=== PATIENT | female | born 2000 | race Caucasian/White ===

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

== ENCOUNTER 2020-01-28 14:41 | Emergency (ER) | payer SELFPAY ==
--- NOTE | 2020-01-28 15:39 | ER Document Report ---
ED Medical Screen (RME) - General Chief Complaint: Vaginal Bleeding Stated Complaint: VAGINAL BLEEDING Time Seen by Provider: 01/28/20 15:36 Primary Care Provider: ISSA FRANCO MD [Primary Care Provider] - Follow up as needed Mode of Arrival: Ambulatory Information source: Patient Notes: 19-year-old female presented to ED for complaint of pelvic pain, back pain, va ginal bleeding. She is 19 weeks 5 days . She states she had similar incident in [place] about a month ago they did pelvic exam ultrasounds and told her that she had a subchorionic hematoma and the baby was okay at that time. She states she is very concerned because she is 3 para 1 with 1 miscarriage. She is a former smoker no alcohol no drugs. States she lives with her family. She has a history of cholecystectomy tonsils and adenoids removed and asthma. He is alert oriented respirations regular nonlabored speaking in full sentences. I have ordered a ultrasound immediately. She is on her way to ultrasound at this time and then will get her blood work and urine. I have greeted and performed a rapid initial assessment of this patient. A comprehensive ED assessment and evaluation of the patient, analysis of test results and completion of medical decision making process will be conducted by an additional ED providers. TRAVEL OUTSIDE OF THE [place] IN LAST 30 DAYS: No - Related Data Allergies/Adverse Reactions: No Known Allergies Allergy (Verified 01/24/19 15:06) Past Medical History - Social History Frequency of alcohol use: None Drug Abuse: None Pulmonary Medical History: Reports: Hx Asthma Renal/ Medical History: Denies: Hx Peritoneal Dialysis GI Medical History: Reports: Hx Gastroesophageal Reflux Disease Psychiatric Medical History: Reports: Hx Anxiety, Hx Depression Past Surgical History: Reports: Hx Adenoidectomy, Hx Cholecystectomy, Hx Tonsillectomy - Immunizations Immunizations up to date: Yes Hx Diphtheria, Pertussis, Tetanus Vaccination: Yes Physical Exam - Vital signs Vitals: Temp Pulse Resp BP Pulse Ox 99.0 F 87 20 112/81 100 01/28/20 14:49 01/28/20 14:49 01/28/20 14:49 01/28/20 14:49 01/28/20 14:49 Course - Vital Signs Vital signs: Temp Pulse Resp BP Pulse Ox 99.0 F 87 20 112/81 100 01/28/20 14:49 01/28/20 14:49 01/28/20 14:49 01/28/20 14:49 01/28/20 14:49 Doctor's Discharge - Discharge Referrals: ISSA FRANCO MD [Primary Care Provider] - Follow up as needed
[2020-01-28 16:17] LABS: ABSOLUTE EOSINOPHILS # (AUTO) 0.3 10^3/uL (0.0-0.6); ABSOLUTE LYMPHOCYTES (AUTO) 1.4 10^3/uL (0.5-4.7); ABSOLUTE MONOCYTES (AUTO) 0.6 10^3/uL (0.1-1.4); ABSOLUTE NEUT (AUTO) 7.4 10^3/uL (1.7-8.2); BASOPHILS % (AUTO) 0.3 % (0-2); EOSINOPHILS % (AUTO) 2.8 % (0-6); HEMATOCRIT 34.8 % (36.0-47.0); HEMOGLOBIN 12.2 g/dL (12.0-15.5); LYMPHOCYTES % (AUTO) 14.2 % (13-45); MEAN CORPUSCULAR HEMOGLOBIN 30.9 pg (27.0-33.4); MEAN CORPUSCULAR HGB CONC 35.1 g/dL (32.0-36.0); MEAN CORPUSCULAR VOLUME 88 fl (80-97); MONOCYTES % (AUTO) 5.7 % (3-13); PLATELET COUNT 206 10^3/uL (150-450); RED BLOOD COUNT 3.96 10^6/uL (3.72-5.28); RED CELL DISTRIBUTION WIDTH 13.4 % (11.5-14.0); TOTAL CELLS COUNTED % (AUTO) 100 %; WHITE BLOOD COUNT 9.6 10^3/uL (4.0-10.5)
[2020-01-28 16:28] LABS: APPEARANCE,URINE CLOUDY; BILIRUBIN,URINE NEGATIVE (NEGATIVE); COLOR,URINE YELLOW; GLUCOSE, URINE NEGATIVE (NEGATIVE); KETONES,URINE NEGATIVE (NEGATIVE); LEUKOCYTE ESTERASE,URINE NEGATIVE (NEGATIVE); NITRITE,URINE NEGATIVE (NEGATIVE); PROTEIN,URINE NEGATIVE (NEGATIVE); URINE SPECIFIC GRAVITY 1.023; UROBILINOGEN,URINE NEGATIVE mg/dL (<2.0)
[2020-01-28 16:30] LABS: ALBUMIN 3.8 g/dL (3.7-5.6); ALKALINE PHOSPHATASE 37 U/L (50-135); ANION GAP 7 (5-19); ASPARTATE AMINO TRANSFERASE 18 U/L (5-30); BILIRUBIN,TOTAL 0.2 mg/dL (0.2-1.3); BLOOD UREA NITROGEN 10 mg/dL (7-20); CALCIUM 9.8 mg/dL (8.4-10.2); CARBON DIOXIDE 23 mmol/L (22-30); CHLORIDE 105 mmol/L (98-107); GLUCOSE 86 mg/dL (75-110); POTASSIUM 4.4 mmol/L (3.6-5.0); TOTAL PROTEIN 6.6 g/dL (6.3-8.2)
--- NOTE | 2020-01-28 16:33 | RADIOLOGY REPORT (SQ) ---
EXAM DESCRIPTION: U/S OB 14+ TRNABD 1GES W/O DOP IMAGES COMPLETED DATE/TIME: 01/28/2020 3:59 pm REASON FOR STUDY: Pelvic pain, back pain, vaginal bleeding, 19 w 5d COMPARISON: 01/01/2019 TECHNIQUE: Static and Dynamic grayscale imaging performed of gravid uterus using transabdominal appr oach. Additional selected color Doppler and spectral images recorded. All stored on PACS. LIMITATIONS: None. FINDINGS: FETUSES SEEN:1 EGA: 18 weeks 2 days Calculated using BPD,FL,HC,AC documented on images. Lags gestation by dates by 1 week 3 days AMBER: 06/28/2020 EFW: 223 grams PERCENTILE: Not calculated LVP: 4.8 x 5 cm PLACENTA: Posterolateral to the right grade 1 PRESENTATION: Cephalic. ANATOMY: HEART RATE: 143 beats per minute. anatomical survey was not performed. MATERNAL ADNEXA: Maternal ovaries not visualized. CERVICAL LENGTH: 2.8 cm Closed. OTHER: No other significant finding. IMPRESSION: LIVING INTRAUTERINE . ESTIMATED GESTATIONAL AGE 18 weeks 2 days NO VISUALIZED ANOMALIES. Trimester of : Second trimester - 13 weeks 1 day to 27 weeks 6 days. TECHNICAL DOCUMENTATION: JOB ID: [id number] [employer]- All Rights Reserved Reading location - IP/workstation name: [email or web address]
[2020-01-28 18:51] VITALS: BP 116/59
--- NOTE | 2020-01-28 19:32 | ER Document Report ---
ED General - General Chief Complaint: Vaginal Bleeding Stated Complaint: VAGINAL BLEEDING Time Seen by Provider: 01/28/20 15:36 Primary Care Provider: ISSA FRANCO MD [Primary Care Provider] - Follow up as needed Mode of Arrival: Ambulatory TRAVEL OUTSIDE OF THE [place] IN LAST 30 DAYS: No - HPI Notes: Patient is a G3, P1 at approximately 18 weeks gestation who presents to the emergency department for evaluation of vaginal bleeding. She states this st arted last night. It was bright red. She passed a large clot this morning. She does have a history of a subchorionic hematoma. She states that it resolved. She denies any continued bleeding. She denies any continued cramping. She is unsure as to her blood type. - Related Data Allergies/Adverse Reactions: No Known Allergies Allergy (Verified 01/24/19 15:06) Past Medical History - General Information source: Patient Last Menstrual Period: 09/09/2019 - Social History Smoking Status: Former Smoker Frequency of alcohol use: None Drug Abuse: None Family History: CAD, CVA, DM, Hyperlipidemia, Hypertension, Other - Migraines. denies: Arthritis, Malignancy, Thyroid Disfunction Pulmonary Medical History: Reports: Hx Asthma Renal/ Medical History: Denies: Hx Peritoneal Dialysis GI Medical History: Reports: Hx Gastroesophageal Reflux Disease Psychiatric Medical History: Reports: Hx Anxiety, Hx Depression Past Surgical History: Reports: Hx Adenoidectomy, Hx Cholecystectomy, Hx Tonsillectomy - Immunizations Immunizations up to date: Yes Hx Diphtheria, Pertussis, Tetanus Vaccination: Yes Review of Systems - Review of Systems Female Genitourinary: See HPI -: Yes All other systems reviewed and negative Physical Exam - Vital signs Vitals: Temp Pulse Resp BP Pulse Ox 99.0 F 87 20 112/81 100 01/28/20 14:49 01/28/20 14:49 01/28/20 14:49 01/28/20 14:49 01/28/20 14:49 - Notes Notes: Vital signs reviewed, please refer to chart. Head is normocephalic, atraumatic. Pupils equal round, reactive to light. Neck is supple without meningismus. Heart is regular rate and rhythm. Lungs are clear to auscultation bilaterally. Abdomen is soft, nontender, normoactive bowel sounds throughout. Extremities without cyanosis, clubbing. Posterior calves are nontender. Peripheral pulses are equal. Skin is warm and dry. Patient is awake, alert, neurological exam is nonfocal. Course - Re-evaluation Re-evalutation: 01/28/20 19:28 Patient presents to the emergency department for vaginal bleeding during . Her ultrasound is unremarkable. No other abnormalities is noted. Her betas positive. Her labs are otherwise stable. We will have her follow-up with OB, she is to return to the ED with worsening or new concerning symptoms of any sort. - Vital Signs Vital signs: Temp Pulse Resp BP Pulse Ox 98.9 F 66 18 116/59 L 100 01/28/20 18:48 01/28/20 18:48 01/28/20 18:48 01/28/20 18:48 01/28/20 18:48 - Laboratory Result Diagrams: 01/28/20 16:07 01/28/20 16:07 Laboratory results interpreted by me: 01/28/20 01/28/20 01/28/20 16:07 16:07 16:07 Hct 34.8 L Sodium 134.5 L Alkaline Phosphatase 37 L Beta HCG, Quant 54422.00 H Urine Blood MODERATE H - Diagnostic Test Radiology reviewed: Reports reviewed Radiology results interpreted by me: 01/28/20 19:30 Obstetrics Ultrasound 01/28/20 15:36 IMPRESSION: LIVING INTRAUTERINE . ESTIMATED GESTATIONAL AGE 18 weeks 2 days NO VISUALIZED ANOMALIES. Trimester of : Second trimester - 13 weeks 1 day to 27 weeks 6 days. Discharge - Discharge Clinical Impression: Vaginal bleeding before 22 weeks gestation Condition: Stable Disposition: HOME, SELF-CARE Instructions: Bleeding During Early ([facility]) Additional Instructions: Your blood type is a positive. Pelvic rest until followed up by OB. Your ultrasound was unremarkable today. Follow-up with your OB this week. Return to the emergency department with worsening or new concerning symptoms of any sort. Referrals: ISSA FRANCO MD [Primary Care Provider] - Follow up as needed
== END 2020-01-28 19:39 | disposition home or self-care (01) ==
LOC: ER 14:41
DX: O46.92 Antepartum hemorrhage, unspecified, second trimester (principal); O99.512 Diseases of the respiratory system complicating pregnancy, second trimester; J45.909 Unspecified asthma, uncomplicated; Z3A.22 22 weeks gestation of pregnancy; Z87.891 Personal history of nicotine dependence
CPT/HCPCS: 36415; 76805; 80053; 81001; 84702; 85025; 99284

== ENCOUNTER 2020-02-18 02:28 | Observation (INO) | payer SELFPAY ==
[2020-02-18 03:18] LABS: APPEARANCE,URINE CLOUDY; BILIRUBIN,URINE NEGATIVE (NEGATIVE); COLOR,URINE AMBER; GLUCOSE, URINE NEGATIVE (NEGATIVE); KETONES,URINE NEGATIVE (NEGATIVE); LEUKOCYTE ESTERASE,URINE SMALL (NEGATIVE); NITRITE,URINE NEGATIVE (NEGATIVE); PROTEIN,URINE 30 mg/dL (NEGATIVE); URINE SPECIFIC GRAVITY 1.027
[2020-02-18 03:35] LABS: URINE AMPHETAMINES SCREEN NEGATIVE; URINE BARBITURATES SCREEN NEGATIVE; URINE BENZODIAZEPINES SCREEN NEGATIVE; URINE COCAINE SCREEN NEGATIVE; URINE METHADONE SCREEN NEGATIVE; URINE PHENCYCLIDINE SCREEN NEGATIVE
[2020-02-18 03:50] LABS: URINE MARIJUANA (THC) SCREEN UNCONFIRMED POSITIVE
--- NOTE | 2020-02-18 04:27 | RADIOLOGY REPORT (SQ) ---
Ultrasound limited on 02/18/2020 at 3:45 AM CLINICAL INDICATION: labor COMPARISON: 01/28/2020 FINDINGS: Multiple sonographic images are obtained throughout the pelvis by transabdominal approach only, both transverse and sagittal images are obtained. Single living intrauterine fetus is noted currently in breech presentation. Cervical length measures approximately 3 cm and the cervix is closed. Positive cardiac activity is noted with heart rate of 162 bpm. Placenta is fundal to posterior in location with no evidence of placenta previa or abruption. Adequate amniotic fluid is noted with amniotic fluid index of 8 cm. However visually when compared with the prior study from 01/28/2020 the amniotic fluid has decreased suggesting premature rupture of membranes. measurements for dates were not performed. No gross abnormality is noted. IMPRESSION: 1. Single living intrauterine fetus in breech presentation. 2. Decrease in amniotic fluid when compared with the prior study suggesting premature rupture of membranes.
[2020-02-18] MEDS ORDERED: RINGERS SOLUTION,LACTATED 1,000 ML IV PRN (04:44)
--- NOTE | 2020-02-18 07:07 | Admission Physical ---
Datetime Report Generated by CPN: 02/18/2020 07:06 CURRENT ADMISSION Chief Complaint: Suspected Ruptured Membranes Indication for Induction: Not Applicable Admit Impression : , Intrauterine ; Observation/Evaluation Admit Impression- Other: patient c/o possible ROM. testing is equivocal due to negative pooling in vagina and negative fern test. However, the sono report indicates a significant reduction in fluid compared to a 18 wks sono in ER Admit Plan- Other: will admit for observation and hydration and perform repeat HENRY later in the day. ALLERGIES Medication Allergies: No Medication Allergies: No Known Allergies (02/18/2020) OBSTETRICAL HISTORY EDC: 06/18/2020 00:00 : 3 Para: 1 Term: 1 : 0 SAB: 1 IAB: 0 Ectopic: 0 Livin Cesareans: 0 VBACs: 0 Multiple Births: 0 Gestational Diabetes: No Rh Sensitization: No Incompetent Cervix: No HUANG: No Infertility: No ART Treatment: No Uterine Anomaly: No IUGR: No Hx Previous C/S: No Macrosomia: No Hx Loss/Stillborn: No PIH: Yes Hx : No Placenta Previa/Abruption: No Depression/PP Depression: No PTL/PROM: No Post Hemorrhage: No Current Procedures: Ultrasound Obstetrical History Comments: 2017 (miscarriage) 2018 (current) SEE RECORDS Alcohol: No Marijuana : No Cocaine: No Other Illicit Drugs: No Cigarettes: Light Tobacco Smoker. [id number] MEDICAL HISTORY Diabetes: No Blood Transfusion: No Pulmonary Disease (Asthma, TB): No Breast Disease: No Hypertension: No Access Director Surgery: No Heart Disease: No Hosp/Surgery: Yes Autoimmune Disorder: No Anesthetic Complications: Yes Kidney Disease: No Abnormal Pap Smear: No Neuro/Epilepsy: No Psychiatric Disorders: No Other Medical Diseases: No Hepatitis/Liver Disease: No Significant Family History: No Varicosities/Phlebitis: No Trauma/Violence : No Thyroid Dysfunction: No Medical History Comments: Gallbladder surgery- 2017 Tonsilecomy and adenoids INFECTIOUS HISTORY Gonorrhea: No Genital Herpes: No Chlamydia: No Tuberculosis: No Syphilis: No Hepatitis: No HIV/AIDS Exposure: No Rash or Viral Illness: No HPV: No PHYSICAL EXAM General: Normal HEENT: Normal Neurologic: Normal Thyroid: Normal Heart: Normal Lungs: Normal Breast: Normal Back: Normal Abdomen: Normal Genitourinary Exam: Normal Extremities: Normal DTRs: Normal Pelvic Type: Adequate Vital Signs: Reviewed FETUS A EGA: 22.5 Monitoring: External US Admit Comment: as above, plan repeat HENRY in 12-18 hours. monitor closely for further bleeding/fluid loss. INFORMED CONSENT Signature: with User ID: [email or web address]
[2020-02-18] MEDS ORDERED: ONDANSETRON 4 MG TAB.RAPDIS ONE (07:28)
[2020-02-18] MEDS ORDERED: ONDANSETRON HCL 8 MG TABLET PO ONE (07:31)
[2020-02-18] MEDS ORDERED: ONDANSETRON HCL 8 MG TABLET ONE (07:34)
[2020-02-18] MEDS ORDERED: AZITHROMYCIN INJ 500 MG VIAL IV SCH ×2 (10:00)
--- NOTE | 2020-02-18 10:49 | Left Against Medical Advice ---
Against Medical Advice Admission Date/Time: 02/18/20 04:51 Primary Care Provider: Date of Patient Emigration: 02/18/20 - Diagnosis: (1) IUP (intrauterine ), incidental Is this a current diagnosis for this admission?: Yes (2) Vaginal bleeding in Is this a current diagnosis for this admission?: Yes - Summary: Summary: Please see Admission and Progress Notes as well. CHELSEA GUZMÁN is a 19 F, who LEFT AGAINST MEDICAL ADVICE. The Patient was admitted on 02/18/20 04:51. pt stated she wanted to leave and would drive to [facility] after she could take care of her child at home. Strongly advised her to stay and be transferred but she and her partner were adamant.
[2020-02-18] MEDS ORDERED: AMPICILLIN SODIUM 2 GM in NORMAL SALINE 100 ML IV SCH (12:00)
[2020-02-18] MEDS ORDERED: AMPICILLIN SOD INJ 2 GM VIAL IV SCH (12:00)
== END 2020-02-18 08:59 | disposition home or self-care (01) ==
LOC: LC 02:28 → LR 04:51 → UNDODISOB 08:59
PROVIDERS: ADMIT Obstetrics & Gynecology; ATTEND Obstetrics & Gynecology
DX: O46.92 Antepartum hemorrhage, unspecified, second trimester (principal); O41.92X0 Disorder of amniotic fluid and membranes, unspecified, second trimester, not applicable or unspecified; O99.332 Smoking (tobacco) complicating pregnancy, second trimester; F17.210 Nicotine dependence, cigarettes, uncomplicated; Z3A.22 22 weeks gestation of pregnancy
CPT/HCPCS: 81001; 80307; 76815; Q0114; G0480 ×2; S0119; 80349; J0290; J7050

== ENCOUNTER 2020-02-20 12:27 | Outpatient (CLI) | payer SELFPAY ==
[2020-02-20] MEDS ORDERED: RINGERS SOLUTION,LACTATED 1,000 ML IV ONE (12:56)
[2020-02-20] MEDS ORDERED: RINGERS SOLUTION,LACTATED 1,000 ML IV PRN (12:56)
[2020-02-20 13:12] LABS: BACTERIA (WET MOUNT) 3+ BACTERIA SEEN; EPITHELIALS (WET MOUNT) 3+ EPITHELIALS SEEN; T.VAGINALIS (WET MOUNT) NO TRICHOMONAS SEEN; WBCS (WET MOUNT) 1+ WBCS SEEN; YEAST (WET MOUNT) NO YEAST SEEN
[2020-02-20 13:29] LABS: AMORPHOUS SEDIMENT,URINE TRACE /HPF; APPEARANCE,URINE TURBID; BILIRUBIN,URINE NEGATIVE (NEGATIVE); COLOR,URINE YELLOW; GLUCOSE, URINE NEGATIVE (NEGATIVE); KETONES,URINE NEGATIVE (NEGATIVE); LEUKOCYTE ESTERASE,URINE NEGATIVE (NEGATIVE); NITRITE,URINE NEGATIVE (NEGATIVE); PROTEIN,URINE NEGATIVE (NEGATIVE); URINE SPECIFIC GRAVITY 1.012; UROBILINOGEN,URINE NEGATIVE mg/dL (<2.0)
[2020-02-20 13:48] LABS: URINE AMPHETAMINES SCREEN NEGATIVE; URINE BARBITURATES SCREEN NEGATIVE; URINE BENZODIAZEPINES SCREEN NEGATIVE; URINE COCAINE SCREEN NEGATIVE; URINE METHADONE SCREEN NEGATIVE; URINE PHENCYCLIDINE SCREEN NEGATIVE
[2020-02-20 13:49] LABS: ABSOLUTE BASOPHILS # (AUTO) 0.1 10^3/uL (0.0-0.2); ABSOLUTE EOSINOPHILS # (AUTO) 0.1 10^3/uL (0.0-0.6); ABSOLUTE LYMPHOCYTES (AUTO) 0.7 10^3/uL (0.5-4.7); ABSOLUTE MONOCYTES (AUTO) 0.5 10^3/uL (0.1-1.4); ABSOLUTE NEUT (AUTO) 10.5 10^3/uL (1.7-8.2); BASOPHILS % (AUTO) 0.5 % (0-2); EOSINOPHILS % (AUTO) 0.8 % (0-6); HEMATOCRIT 32.8 % (36.0-47.0); HEMOGLOBIN 11.4 g/dL (12.0-15.5); LYMPHOCYTES % (AUTO) 5.8 % (13-45); MEAN CORPUSCULAR HEMOGLOBIN 31.4 pg (27.0-33.4); MEAN CORPUSCULAR HGB CONC 34.7 g/dL (32.0-36.0); MEAN CORPUSCULAR VOLUME 91 fl (80-97); MONOCYTES % (AUTO) 3.9 % (3-13); PLATELET COUNT 186 10^3/uL (150-450); RED BLOOD COUNT 3.63 10^6/uL (3.72-5.28); RED CELL DISTRIBUTION WIDTH 13.4 % (11.5-14.0); TOTAL CELLS COUNTED % (AUTO) 100 %; WHITE BLOOD COUNT 11.8 10^3/uL (4.0-10.5)
[2020-02-20 13:55] LABS: URINE MARIJUANA (THC) SCREEN UNCONFIRMED POSITIVE
[2020-02-20] MEDS ORDERED: PROMETHAZINE HCL INJ 25 MG/1 ML VIAL ONE ×2 (13:58→17:41)
[2020-02-20] MEDS: PROMETHAZINE HCL INJ 25 MG/1 ML VIAL IV PRN ×2 (14:06→17:45)
[2020-02-20 14:47] LABS: ALBUMIN 3.8 g/dL (3.5-5.0); ALKALINE PHOSPHATASE 40 U/L (38-126); ANION GAP 7 (5-19); ASPARTATE AMINO TRANSFERASE 19 U/L (14-36); BILIRUBIN,TOTAL 0.3 mg/dL (0.2-1.3); BLOOD UREA NITROGEN 8 mg/dL (7-20); CALCIUM 9.6 mg/dL (8.4-10.2); CARBON DIOXIDE 20 mmol/L (22-30); CHLORIDE 108 mmol/L (98-107); GLUCOSE 96 mg/dL (75-110); POTASSIUM 4.2 mmol/L (3.6-5.0); TOTAL PROTEIN 6.5 g/dL (6.3-8.2)
[2020-02-20] MEDS ORDERED: CEFTRIAXONE INJ 1000 MG VIAL ONE (14:47)
[2020-02-20] MEDS ORDERED: CEFTRIAXONE 1 GM/D5W RTU 1 GM/50 ML RTUPB IV ONE (14:47)
[2020-02-20 15:01] LABS: CHLAM PCR DETECTED (NOT DETECT)
[2020-02-20] MEDS ORDERED: ONDANSETRON HCL INJ/PF 4 MG/2 ML SDV ONE (15:19)
[2020-02-20] MEDS ORDERED: AZITHROMYCIN INJ 500 MG VIAL IV ONE ×2 (15:35→15:37)
[2020-02-20] MEDS ORDERED: AZITHROMYCIN 500 MG in DEXTROSE 5%-WATER 250 ML IV ONE (16:00)
--- NOTE | 2020-02-20 17:29 | RADIOLOGY REPORT (SQ) ---
EXAM DESCRIPTION: U/S OB LIMITED IMAGES COMPLETED DATE/TIME: 02/20/2020 5:11 pm REASON FOR STUDY: needs rpt u/s follow up, Decreased HENRY/ check CL COMPARISON: 02/18/2020 TECHNIQUE: Limited transabdominal grayscale ultrasound for evaluation of specific requested obstetri diony parameters. LIMITATIONS: None. FINDINGS: CERVICAL LENGTH: 3 cm. Closed. HENRY: 4.5 cm. FHR: 157 beats per minute. PRESENTATION: Breech PLACENTA: Posterior ANATOMY: Not assessed OTHER: Intrauterine gestation 23 weeks. IMPRESSION: Limited Ob ultrasound with measurements as described above. Oligohydramnios. Trimester of : Second trimester - 13 weeks 1 day to 27 weeks 6 days. TECHNICAL DOCUMENTATION: JOB ID: [id number] 2010 [employer]- All Rights Reserved Reading location - IP/workstation name: [email or web address]
--- NOTE | 2020-02-20 17:30 | Admission Physical ---
Datetime Report Generated by CPN: 02/20/2020 17:30 CURRENT ADMISSION Chief Complaint: Other Chief Complaint Other: Nausea and vomitting Indication for Induction: Not Applicable Admit Impression : , Intrauterine Admit Impression- Other: Hyperemesis Admit Plan- Other: Observation, IV hydration ALLERGIES Medication Allergies: No Medication Allergies: No Known Allergies (02/18/2020) Latex: No Latex Allergies Food Allergies: None Environmental Allergies: Mold, pollen, grass, dust 02/20/2020 OBSTETRICAL HISTORY EDC: 06/18/2020 00:00 : 3 Para: 1 Term: 1 : 0 SAB: 1 IAB: 0 Ectopic: 0 Livin Cesareans: 0 VBACs: 0 Multiple Births: 0 Gestational Diabetes: No Rh Sensitization: No Incompetent Cervix: No HUANG: No Infertility: No ART Treatment: No Uterine Anomaly: No IUGR: No Hx Previous C/S: No Macrosomia: No Hx Loss/Stillborn: No PIH: Yes Hx : No Placenta Previa/Abruption: No Depression/PP Depression: No PTL/PROM: No Post Hemorrhage: No Current Procedures: Ultrasound Obstetrical History Comments: 2017 (miscarriage) 2018 (current) SEE RECORDS Alcohol: No Marijuana : Yes Cocaine: No Other Illicit Drugs: No Cigarettes: Light Tobacco Smoker. [id number] MEDICAL HISTORY Diabetes: No Blood Transfusion: No Pulmonary Disease (Asthma, TB): No Breast Disease: No Hypertension: No [employer] Surgery: No Heart Disease: No Hosp/Surgery: Yes Autoimmune Disorder: No Anesthetic Complications: Yes Kidney Disease: No Abnormal Pap Smear: No Neuro/Epilepsy: No Psychiatric Disorders: No Other Medical Diseases: No Hepatitis/Liver Disease: No Significant Family History: No Varicosities/Phlebitis: No Trauma/Violence : No Thyroid Dysfunction: No Medical History Comments: Gallbladder surgery- 2017 Tonsilecomy and adenoids INFECTIOUS HISTORY Gonorrhea: No Genital Herpes: No Chlamydia: No Tuberculosis: No Syphilis: No Hepatitis: No HIV/AIDS Exposure: No Rash or Viral Illness: No HPV: No PHYSICAL EXAM General: Normal HEENT: Normal Neurologic: Normal Thyroid: Normal Heart: Normal Lungs: Normal Breast: Normal Back: Normal Abdomen: Normal Genitourinary Exam: Normal Extremities: Normal DTRs: Normal Pelvic Type: Adequate Vital Signs: Reviewed FETUS A EGA: 23.0 Monitoring: External US FHR- Baseline: 140 Decelerations: None Admit Comment: here c/o severe nausea and vomitting since yesterday. States unsure if her water broke this morning w/ vomittind. Fern test negative result per lab evaluation. +Chlamydia noted today, tx with IV Azithromycin. Pt also given 1gm IV Rocephin for suspected UTI. U/s done this evening and HENRY noted to be 4.5 cm. Pt will need another u/s to follow after IV hydration. Will observe overnight and treat for hyperemesis. Also +THC this admission. Dr Rouse aware of pt status and agrees w/ plan of care. INFORMED CONSENT Assignment: Arron Rouse MD Signature: with User ID: [email or web address] : with User ID: [email or web address]
[2020-02-20] MEDS: ONDANSETRON HCL INJ/PF 4 MG/2 ML SDV IV PRN (23:46)
[2020-02-21] MEDS: DEXTROSE 5%-LACTATED RINGERS 1,000 ML IV PRN ×2 (00:45→08:58)
[2020-02-21] MEDS: PROMETHAZINE HCL INJ 25 MG/1 ML VIAL IV PRN ×2 (01:06→06:21)
--- NOTE | 2020-02-21 01:07 | RADIOLOGY REPORT (SQ) ---
EXAM DESCRIPTION: US LIMITED COMPLETED DATE/TME: 02/21/2020 08:00 CLINICAL HISTORY: 20 years, Female, iup 22 weeks, vaginal discharge, repeat HENRY COMPARISON: Obstetrical ultrasound 02/20/2020 TECHNIQUE: LIMITATIONS: None. FINDINGS: There is a live IUP. cardiac activity was measured at 147 bpm. There is oligohydramnios. The amniotic fluid index is 3.8 cm. The amniotic fluid index on the prior ultrasound examination was 4.5 cm. The placenta is posterior in location. The cervix measures 3.1 cm in length and is closed. IMPRESSION: Live IUP with oligohydramnios. copyright 2010 [employer] All Rights Reserved
[2020-02-21] MEDS: ONDANSETRON HCL INJ/PF 4 MG/2 ML SDV IV PRN ×2 (04:25→08:58)
[2020-02-21] MEDS ORDERED: PROMETHAZINE HCL INJ 25 MG/1 ML VIAL IV ONE (09:09)
[2020-02-21] MEDS ORDERED: AMPICILLIN SOD INJ 1 GM VIAL IV ONE (09:13)
[2020-02-21] MEDS ORDERED: MAGNESIUM SULFATE 4 GM/100 ML RTUPB IV ONE ×2 (09:20→10:31)
[2020-02-21] MEDS ORDERED: MAGNESIUM SULFATE 20 GM/500 ML RTUINJ IV PRN (09:20)
[2020-02-21] MEDS ORDERED: AZITHROMYCIN INJ 500 MG VIAL IV ONE (09:20)
--- NOTE | 2020-02-21 09:42 | PDOC TRANSFER SUMMARY ---
General Admission Date/PCP: 02/20/20 16:47 Admission Date: 02/20/20 Transfer Date: 02/21/20 Accepting Facility: [facility] Accepting Physician: Dr. Contreras Resuscitation Status: Full Code - Transfer Diagnosis (1) 23 weeks gestation of Is this a current diagnosis for this admission?: Yes (2) premature rupture of membranes Is this a current diagnosis for this admission?: Yes (3) Anxiety as acute reaction to exceptional stress Is this a current diagnosis for this admission?: Yes (4) Chlamydia Is this a current diagnosis for this admission?: Yes (5) Emesis, persistent Is this a current diagnosis for this admission?: Yes (6) Tetrahydrocannabinol (THC) use disorder, mild, abuse Is this a current diagnosis for this admission?: Yes (7) Vaginal bleeding in Is this a current diagnosis for this admission?: Yes - Transfer Medications Home Medications: Pnv No.95/Ferrous Fum/Folic AC [ Vitamin Tablet] 1 tab PO DAILY 01/24/19 Transfer Medications: Current Medications Lactated Ringer's (Lactated Ringers 1000 Ml Iv Soln) 1,000 mls @ 125 mls/hr IV CONTINUOUS PRN PRN Reason: THIS MED IS NOT "PRN" Stop: 03/21/20 12:55 Dextrose/Lactated Ringer's (D5lr 1000 Ml Iv Soln) 1,000 mls @ 125 mls/hr IV CONTINUOUS PRN PRN Reason: THIS MED IS NOT "PRN" Stop: 03/21/20 17:03 Last Admin: 02/21/20 08:58 Dose: 125 mls/hr Documented by: Magnesium Sulfate (Magnesium Sulfate Rtu 4 Gm/100 Ml Premix Bag) 4 gm in 100 mls @ 200 mls/hr IV NOW ONE Stop: 02/21/20 09:49 Magnesium Sulfate (Magnesium Sulfate Rtu 20 Gm/500 Ml Premix) 20 gm in 500 mls @ 50 mls/hr IV CONTINUOUS PRN PRN Reason: THIS MED IS NOT "PRN" Stop: 03/22/20 09:19 Ondansetron HCl (Zofran Inj/Pf 4 Mg/2 Ml Sdv) 4 mg IV Q4HP PRN PRN Reason: FOR NAUSEA/VOMITING Stop: 03/21/20 15:18 Last Admin: 07/31/20 08:58 Dose: 4 mg Documented by: Pantoprazole Sodium (Protonix Iv Inj 40 Mg Vial) 40 mg IV DAILY ASHWINI Stop: 02/28/20 09:59 Last Admin: 02/21/20 09:21 Dose: 40 mg Documented by: Promethazine HCl (Phenergan Inj 25 Mg/1 Ml Vial) 12.5 mg IV Q4HP PRN PRN Reason: UNRESOLVED NAUSEA/VOMITING Stop: 03/21/20 12:56 Last Admin: 02/21/20 06:21 Dose: 12.5 mg Documented by: - Allergies Allergies/Adverse Reactions: No Known Allergies Allergy (Verified 02/18/20 03:15) Hospital Course Hospital Course: this is a 20 yo @ 23 1/7 wks gestation who I am familiar with from her previous admission earlier this week where I diagnosised her with likely PPROM based on exam and reduced HENRY. On that admission I had discussed with her regarding transfer to tertiary facility secondary to diagnosis however, the patient left AMA after I had turned over the service to oncoming physician. She represented yesterday evening with complaints of hyperemesis and was admitted for observation again. Her HENRY was again reduced last evening and was further reduced this AM with her HENRY currently 3.8 cm. She did test positive for Chlmydia on this visit and she has been treated with Azithromycin. I have discussed the case with MFM Dr. Maradiaga and with accepting physician Dr. Contreras at [facility] and will initiate ACS protocol with a dose of Celestone 12 mg IM now and start Magnesium for transport. I have reiniated her Ampicillin and her Zithromax for latency. Physical Exam Vital Signs: Temp Pulse Resp BP Pulse Ox 98.3 F 76 18 133/77 H 100 02/21/20 07:23 02/21/20 07:23 02/21/20 07:23 02/21/20 07:23 02/21/20 07:23 Intake & Output 02/20/20 02/21/20 02/22/20 06:59 06:59 06:59 Intake Total 1000 Output Total 120 Balance -120 1000 Weight 74.9 kg General appearance: PRESENT: mild distress, well-nourished Extremities exam: PRESENT: other - no cyanosis/clubbing/edema Musculoskeletal exam: PRESENT: ambulatory Additional comments: uterus just above umbilicus, nontender Results Laboratory Results: 02/20/20 13:36 02/20/20 13:36 02/20/20 02/20/20 02/20/20 13:00 13:36 13:36 WBC 11.8 H RBC 3.63 L Hgb 11.4 L Hct 32.8 L MCV 91 MCH 31.4 MCHC 34.7 RDW 13.4 Plt Count 186 Seg Neutrophils % 89.0 H Sodium Potassium Chloride Carbon Dioxide Anion Gap BUN Creatinine Est GFR ( Amer) Glucose Calcium Total Bilirubin AST Alkaline Phosphatase Total Protein Albumin Urine Color YELLOW Urine Appearance TURBID Urine pH 7.0 Ur Specific [place] 1.012 Urine Protein NEGATIVE Urine Glucose (UA) NEGATIVE Urine Ketones NEGATIVE Urine Blood SMALL H Urine Nitrite NEGATIVE Ur Leukocyte Esterase NEGATIVE Urine WBC (Auto) 3 Urine RBC (Auto) 3 Blood Type A POSITIVE Antibody Screen NEGATIVE 02/20/20 13:36 WBC RBC Hgb Hct MCV MCH MCHC RDW Plt Count Seg Neutrophils % Sodium 134.6 L Potassium 4.2 Chloride 108 H Carbon Dioxide 20 L Anion Gap 7 BUN 8 Creatinine 0.48 L Est GFR ( Amer) > 60 Glucose 96 Calcium 9.6 Total Bilirubin 0.3 AST 19 Alkaline Phosphatase 40 Total Protein 6.5 Albumin 3.8 Urine Color Urine Appearance Urine pH Ur Specific [place] Urine Protein Urine Glucose (UA) Urine Ketones Urine Blood Urine Nitrite Ur Leukocyte Esterase Urine WBC (Auto) Urine RBC (Auto) Blood Type Antibody Screen Impressions: Obstetrics Ultrasound 02/21/20 08:00 IMPRESSION: Live IUP with oligohydramnios. copyright 2010 [employer]- All Rights Reserved Plan Discharge Plan: transfer to [facility] with the above treatments in place. Thank you Dr. Contreras and Dr. Maradiaga for your assistance with this patient. Time Spent: Greater than 30 Minutes
[2020-02-21] MEDS ORDERED: PANTOPRAZOLE SODIUM 40 MG VIAL IV SCH (10:00)
[2020-02-21] MEDS ORDERED: MAGNESIUM SULFATE 20 GM/500 ML RTUINJ IV ONE (10:31)
[2020-02-21] MEDS ORDERED: BETAMET ACET/BETAMET NA INJ 6 MG/1 ML ONE (10:32)
[2020-02-21] MEDS ORDERED: AMPICILLIN SOD INJ 1 GM VIAL ONE (10:34)
[2020-02-21] MEDS ORDERED: BETAMET ACET/BETAMET NA INJ 6 MG/1 ML IM ONE (10:35)
[2020-02-21 11:38] VITALS: BP 136/67
[2020-02-22 10:35] LABS: HEPATITS B SURFACE ANTIGEN Negative (Negative)
[2020-02-23 10:36] LABS: HEPATITIS C QUANTITATION HCV Not Detected IU/mL (.)
== END 2020-02-21 11:50 | disposition short-term general hospital (02) ==
LOC: LC 12:27 → LR 16:47 → UNDOADMOB 16:47 → 2S 21:11 → LR 21:11 → UNDODISOB 02-21 11:50 → LC 02-21 11:50
PROVIDERS: ATTEND Obstetrics & Gynecology
DX: O42.912 Preterm premature rupture of membranes, unspecified as to length of time between rupture and onset of labor, second trimester (principal); O99.344 Other mental disorders complicating childbirth; F41.1 Generalized anxiety disorder; O67.9 Intrapartum hemorrhage, unspecified; O21.2 Late vomiting of pregnancy; F12.10 Cannabis abuse, uncomplicated; O98.32 Other infections with a predominantly sexual mode of transmission complicating childbirth; A56.2 Chlamydial infection of genitourinary tract, unspecified; O99.334 Smoking (tobacco) complicating childbirth; Z3A.23 23 weeks gestation of pregnancy; Z91.09 Other allergy status, other than to drugs and biological substances
CPT/HCPCS: 86900; 86901; 36415; 87086; 87210; 86850; 85025; 86762; 86592; 80053; 81001; 87522; 87340; 86701; 80307; 87491; 87591; 76815 ×2; C1758; Q0114; G0480 ×2; J3475 ×2; J0290; J0702; C9113; J2550 ×2; J2405 ×2; J7121; J7120; J0456; J0696; 80349; J7060